=== PATIENT | female | born 1995 | race Hispanic/Latino ===

== ENCOUNTER 2018-01-25 23:56 | Emergency (ER) | payer MEDICAID ==
[2018-01-26 03:03] LABS: Basophils % (Auto) 0.5 % (0.0-1.8); Eosinophils # (Auto) 0.2 K/mm3 (0.0-0.4); Eosinophils % (Auto) 2.3 % (0.0-4.3); Hemoglobin 12.2 gm/dl (10.1-14.3); Lymphocytes # (Auto) 1.7 K/mm3 (1.2-5.4); Lymphocytes % (Auto) 23.8 % (13.4-35.0); Mean Corpuscular HGB Conc 34 % (30-34); Mean Corpuscular Hemoglobin 29 pg (28-32); Mean Corpuscular Volume 85 fl (79-97); Monocytes # (Auto) 0.4 K/mm3 (0.0-0.8); Monocytes % (Auto) 6.1 % (0.0-7.3); Platelet Count 213 K/mm3 (140-440); Red Blood Count 4.24 M/mm3 (3.65-5.03); Red Cell Distribution Width 14.1 % (13.2-15.2)
[2018-01-26 03:16] LABS: Bacteria,Urine 4+ /HPF (Negative); Bilirubin,Urine NEG (Negative); Blood,Urine MOD (Negative); Color,Urine Yellow (Yellow); Protein,Urine <15 mg/dL mg/dL (Negative); Urobilinogen,Urine < 2.0 mg/dL (<2.0)
[2018-01-26 03:21] LABS: BUN/Creatinine Ratio 25; Blood Urea Nitrogen 10 mg/dL (7-17); Calcium 9.1 mg/dL (8.4-10.2); Hemolysis Index 0
[2018-01-26 03:25] LABS: Amphetamine Screen,Urine PRESUMPTIVE NEGATIVE; Benzodiazepines Screen,Urine PRESUMPTIVE NEGATIVE; Cocaine Screen,Urine PRESUMPTIVE NEGATIVE; Methadone Screen,Urine PRESUMPTIVE NEGATIVE
[2018-01-26 03:42] LABS: Cannabinoid Screen,Urine PRESUMPTIVE POSITIVE; Opiate Screen,Urine PRESUMPTIVE POSITIVE
--- NOTE | 2018-01-26 04:28 | Emergency Department Report ---
ED Psych HPI - General Chief Complaint: Psych Stated Complaint: MH Time Seen by Provider: 01/26/18 04:17 Source: patient Mode of arrival: Ambulatory - History of Present Illness Initial Comments: Patient is 22-year-old female history of schizophrenia. Patient presented to the ER for evaluation of auditory hallucination and requesting detox from heroin. Patient denied any suicidal or homicidal ideation however she stated that she is depressed. No other complaints. MD Complaint: feels depressed Associated Psychiatric Symptoms: auditory hallucinations History of same: Yes - Related Data Previous Rx's Medication Instructions Recorded Last Taken Type Ibuprofen [Motrin] 600 mg PO Q8H PRN #30 tablet 07/13/16 Unknown Rx Levofloxacin [Levaquin] 750 mg PO QDAY #9 tablet 07/13/16 Unknown Rx Metoclopramide [Reglan] 10 mg PO QID PRN #30 tablet 07/13/16 Unknown Rx oxyCODONE [Roxicodone] 5 mg PO Q6HR PRN #15 tablet 07/13/16 Unknown Rx Allergies Allergy/AdvReac Type Severity Reaction Status Date / Time No Known Allergies Allergy Verified 07/13/16 09:54 ED Review of Systems ROS: Stated complaint: MH Other details as noted in HPI Comment: All other systems reviewed and negative Constitutional: denies: chills, fever Eyes: denies: eye pain Respiratory: denies: cough, orthopnea, shortness of breath, SOB with exertion, SOB at rest Cardiovascular: denies: chest pain, palpitations, dyspnea on exertion, orthopnea Gastrointestinal: denies: abdominal pain, nausea, vomiting, diarrhea, constipation, hematemesis, melena, hematochezia Neurological: denies: headache, weakness, numbness, paresthesias, confusion Psychiatric: depression, auditory hallucinations. denies: visual hallucinations , homicidal thoughts, suicidal thoughts ED Past Medical Hx - Past Medical History Hx Psychiatric Treatment: Yes (Bipolar, Schizophrenia) - Surgical History Past Surgical History?: No - Social History Smoking Status: Current Every Day Smoker Substance Use Type: Heroin - Medications Home Medications: Home Medications Medication Instructions Recorded Confirmed Last Taken Type Ibuprofen [Motrin] 600 mg PO Q8H PRN #30 tablet 07/13/16 Unknown Rx Levofloxacin [Levaquin] 750 mg PO QDAY #9 tablet 07/13/16 Unknown Rx Metoclopramide [Reglan] 10 mg PO QID PRN #30 tablet 10/05/16 Unknown Rx oxyCODONE [Roxicodone] 5 mg PO Q6HR PRN #15 tablet 07/13/16 Unknown Rx ED Physical Exam - General Limitations: No Limitations General appearance: alert, in no apparent distress - Head Head exam: Present: atraumatic, normocephalic, normal inspection - Eye Eye exam: Present: normal appearance, PERRL - ENT ENT exam: Present: normal exam, normal orophraynx, mucous membranes moist - Neck Neck exam: Present: normal inspection, full ROM. Absent: tenderness, meningismus - Respiratory Respiratory exam: Present: normal lung sounds bilaterally. Absent: respiratory distress, wheezes, rales, rhonchi, stridor, chest wall tenderness, accessory muscle use, decreased breath sounds, prolonged expiratory - Cardiovascular Cardiovascular Exam: Present: regular rate, normal rhythm, normal heart sounds - GI/Abdominal GI/Abdominal exam: Present: soft. Absent: distended, tenderness, guarding, rebound, rigid, normal bowel sounds, mass, bruit, pulsatile mass, hernia - Extremities Exam Extremities exam: Present: normal inspection, full ROM, normal capillary refill - Back Exam Back exam: Present: normal inspection, full ROM. Absent: CVA tenderness (L) - Neurological Exam Neurological exam: Present: alert, oriented X3, CN II-XII intact, normal gait - Psychiatric Psychiatric exam: Present: depressed. Absent: agitated, anxious, flat affect, manic, homicidal ideation, suicidal ideation - Skin Skin exam: Present: warm, intact, normal color ED Course Vital Signs 01/26/18 01/26/18 00:23 02:27 Temperature 98.2 F 98.2 F Pulse Rate 94 H 94 H Respiratory 20 16 Rate Blood Pressure 110/62 110/62 O2 Sat by Pulse 100 100 Oximetry ED Medical Decision Making - Lab Data Result diagrams: 01/26/18 02:39 01/26/18 02:39 Critical care attestation.: If time is entered above; I have spent that time in minutes in the direct care of this critically ill patient, excluding procedure time. ED Disposition Clinical Impression: Depression, Auditory hallucination, UTI (urinary tract infection) Disposition: [id number] PSY HOSP/PSY UNIT Is pt being admited?: No Condition: Stable Referrals: CHARISSE OATES MD [Primary Care Provider] - 3-5 Days
[2018-01-26] MEDS ORDERED: BACTRIM DS PO SCH (10:00)
[2018-01-26 11:14] VITALS: BP 111/65
--- NOTE | 2018-01-26 12:13 | Consultation ---
History of Present Illness - Reason for Consult Consult date: 01/26/18 Reason for consult: Mental Health Evaluation Requesting physician: ROQUE JOSEPH - Chief Complaint Chief complaint: "I plan to get help" - History of Present Psychiatric Illness 22 y.o. white female presenting to [facility] for heroin detox. Today the patient is calm and cooperative during the assessment. She stated being "clean" from heroin for 60 days, but relapsed. She stated that she was hanging around "bad people" that influence to use "drugs." She stated that she plan to reenter [facility] for rehab and outpatient psy services when discharged. She acknowledged a hx of depression, but denies being suicidal or having manic episodes in the past. She denies a psychotic do. She stated that she may hear voices when she is using drugs "only." She denies SI/HI's and AVH's. She denies N/V. She denies a poor appetite and erratic sleep. She denies alcohol consumption (etoh). Medications and Allergies Allergies Allergy/AdvReac Type Severity Reaction Status Date / Time No Known Allergies Allergy Verified 07/13/16 09:54 Home Medications Medication Instructions Recorded Confirmed Last Taken Type Ibuprofen [Motrin] 600 mg PO Q8H PRN #30 tablet 07/13/16 Unknown Rx Levofloxacin [Levaquin] 750 mg PO QDAY #9 tablet 07/13/16 Unknown Rx Metoclopramide [Reglan] 10 mg PO QID PRN #30 tablet 07/13/16 Unknown Rx oxyCODONE [Roxicodone] 5 mg PO Q6HR PRN #15 tablet 07/13/16 Unknown Rx Past psychiatric history - Past Medical History Past Medical History: other (Vaginal delievery) Past Surgical History: No surgical history - past Psychiatric treatment and history psychiatric treatment history: Rehab and psy services at [facility] in [place], [place]. Denies a fam psy hx. - Social History Social history: lives with family Mental Status Exam - Vital signs Last Vital Signs Temp 97.6 F 01/26/18 08:33 Pulse 95 H 01/26/18 08:33 Resp 18 01/26/18 08:33 BP 111/65 01/26/18 08:33 Pulse Ox 100 01/26/18 08:33 - Exam Narrative exam: MSE: Appearance: calm, cooperative Behavior: regular eye contact Speech: regular rate and tone Mood: "well" Affect: normal Thought Process: logical Thought Content: denies SI/HI's and AVH's Motor Activity: ambulatory Cognition: A/O x 3 Insight: appropriate Judgment: appropriate Results Result Diagrams: 01/26/18 02:39 01/26/18 02:39 Abnormal lab results 01/26/18 01/26/18 01/26/18 Range/Units 02:35 02:39 02:39 Creatinine 0.4 L (0.7-1.2) mg/dL Urine WBC (Auto) 118.0 H (0.0-6.0) /HPF Acetaminophen < 5.0 L (10.0-30.0) ug/mL All other labs normal. Assessment and Plan Assessment and plan: Impression: Hx of Depression. Cannabis Use DO. Opioid Use DO. Today the patient is calm and cooperative during the assessment. No signs of opioid withdrawals. Recommendation/Plan: The patient can follow up with [facility] for rehab and outpatient psy services. Discussed the importance to abstain from recreational drugs use with patient.
== END 2018-01-26 11:50 ==
LOC: ED 23:56
DX: R44.0 Auditory hallucinations (principal); F32.9 Major depressive disorder, single episode, unspecified; N39.0 Urinary tract infection, site not specified; F17.200 Nicotine dependence, unspecified, uncomplicated
CPT/HCPCS: 36415; 80048; 80307; 81001; 84703; 85025; 99284; G0480; 80320

== ENCOUNTER 2018-06-30 21:03 | Emergency (ER) | payer MEDICAID ==
[2018-06-30 21:48] VITALS: BP 153/92
== END 2018-07-01 01:22 | disposition left against medical advice (07) ==
LOC: ED 21:03
DX: R30.0 Dysuria (principal); Z53.21 Procedure and treatment not carried out due to patient leaving prior to being seen by health care provider
CPT/HCPCS: 93005; 93010